=== PATIENT | female | born 1995 | race Caucasian/White ===

== ENCOUNTER 2018-05-30 01:47 | Emergency (ER) | payer BC ==
[2018-05-30] MEDS ORDERED: Lidocaine 1% 20 ML MDV INJECT ONE (02:24)
[2018-05-30] MEDS ORDERED: Lidocaine/EPINEPHrine/Tetracaine Soln 5 ML Each TOP ONE (02:24)
[2018-05-30] MEDS ORDERED: Bacitracin Oint 1 GM U/D Packet TOP ONE (02:25)
--- NOTE | 2018-05-30 02:29 | EDM.PDOC ---
ED HPI GENERAL MEDICAL PROBLEM - General Chief Complaint: Bite:Animal, Insect Stated Complaint: DOG BITE TO FACE Time Seen by Provider: 05/30/18 02:25 Source of Information: Reports: Patient History Limitations: Reports: No Limitations - History of Present Illness INITIAL COMMENTS - FREE TEXT/NARRATIVE: pt was bite by her own dog when he was playing with it tonight. He is current with his shots. Onset: Today, Sudden Duration: Hour(s): Location: Reports: Face Associated Symptoms: Reports: No Other Symptoms lip Pain Score (Numeric/FACES): 7 - Related Data Allergies Allergy/AdvReac Type Severity Reaction Status Date / Time Penicillins Allergy Hives Verified 05/30/18 02:09 Home Meds: Home Meds * Control 1 tab PO DAILY 05/30/18 [History] Past Medical History - Past Surgical History HEENT Surgical History: Reports: Oral Surgery Musculoskeletal Surgical History: Reports: Other (See Below) Other Musculoskeletal Surgeries/Procedures:: right wrost reconstruction surgery Social & Family History - Tobacco Use Smoking Status *Q: Never Smoker - Caffeine Use Caffeine Use: Reports: Coffee - Alcohol Use Days Per Week of Alcohol Use: 1 Number of Drinks Per Day: 3 Total Drinks Per Week: 3 - Recreational Drug Use Recreational Drug Use: No ED ROS GENERAL - Review of Systems Review Of Systems: See Below Constitutional: Reports: No Symptoms HEENT: Reports: Other ( a laceration on the rt side of her lip. ) Respiratory: Reports: No Symptoms Cardiovascular: Reports: No Symptoms Endocrine: Reports: No Symptoms GI/Abdominal: Reports: No Symptoms : Reports: No Symptoms Musculoskeletal: Reports: No Symptoms Skin: Reports: No Symptoms ED EXAM, ANIMAL BITE - Physical Exam Exam: See Below Text/Narrative:: pt arrived after she was bite by her own dog. The dog is current with her shots. Pt is current with tetanus. Exam Limited By: No Limitations General Appearance: Alert, Mild Distress Ears: Normal TMs Nose: Normal Inspection Throat/Mouth: Other ( 1/4 inch laceration on the rt lower lip) Head: Atraumatic Neck: Normal Inspection Respiratory/Chest: No Respiratory Distress Cardiovascular: Regular Rate, Rhythm Course - Vital Signs Last Recorded V/S: Last Vital Signs Temp 36.9 C 05/30/18 02:12 Pulse 92 05/30/18 02:12 Resp 16 07/07/18 02:12 BP 137/87 05/30/18 02:12 Pulse Ox 98 05/30/18 02:12 - Orders/Labs/Meds Meds: Medications Discontinued Medications Generic Name Dose Route Start Last Admin Trade Name Juan M PRN Reason Stop Dose Admin Bacitracin 1 dose 05/30/18 02:25 05/30/18 02:42 Bacitracin Oint 1 Gm TOP 05/30/18 02:26 1 dose ONETIME ONE Administration Lidocaine HCl 20 ml 05/30/18 02:24 05/30/18 02:30 Xylocaine 1% INJECT 05/30/18 02:25 20 ml ONETIME ONE Administration Lidocaine/Tetracaine 5 ml 05/30/18 02:24 05/30/18 02:30 Let Soln TOP 05/30/18 02:25 5 ml ONETIME ONE Administration - Re-Assessments/Exams Free Text/Narrative Re-Assessment/Exam: 05/30/18 03:22 let was applied to the wound and then it was infiltrated with 1 % lidocaine. The wound was through and through. Inside the mouth the wound was closed with 5- 0 chromic. The outside was brought together with 5-0 chromic and 5-0 prolene. bacatracin will be applied. Departure - Departure Time of Disposition: 03:24 Disposition: Home, Self-Care 01 Condition: Fair Clinical Impression: Laceration of lip - Discharge Information Referrals: PCP,None [Primary Care Provider] - Forms: ED Department Discharge Care Plan Goals: keep coated with bacatracin, sr in 6 days. avoid salty and acid foods. rtc if redness appears, keflex 500mg tid for 7 days.
== END 2018-05-30 03:35 | disposition home or self-care (01) ==
LOC: JP.ED 01:47
DX: S01.551A Open bite of lip, initial encounter (principal); Z88.0 Allergy status to penicillin; W54.0XXA Bitten by dog, initial encounter
CPT/HCPCS: 12011; 99283; A9270